=== PATIENT | female | born 1960 | race Caucasian/White ===

== ENCOUNTER 2019-04-06 11:39 | Observation (INO) | payer BC ==
[2019-04-06 13:13] VITALS: BMI 29.8
[2019-04-06 13:18] LABS: #Basophils 0.1 thou/uL (0.0-0.2); #Eosinphils 0.1 thou/uL (0.0-0.7); #Lymphocytes 1.9 thou/uL (1.20-3.40); #Monocytes 0.8 thou/uL (0.11-0.59); #Neutrophils 4.5 thou/uL (1.40-6.50); %Basophils 0.9 % (0.0-1.0); %Eosinophils 1.5 % (0.0-10.0); %Lymphocytes 25.3 % (21.0-51.0); %Monocytes 10.2 % (0.0-10.0); %Neutrophils 62.1 % (42.0-75.0); Hemoglobin 13.5 g/dL (12.0-16.0); Mean Corpuscular HGB CONC 33.7 g/dL (32.0-36.0); Mean Corpuscular Hemoglobin 30.5 pg (27.0-31.0); Mean Corpuscular Volume 90.4 fL (78.0-98.0); Mean Platelet Volume 6.8 fL (7.4-10.4); Platelet Count 254 thou/uL (130-400); RBC Distribution Width 11.5 % (11.5-14.5); Red Blood Cell (RBC) Count 4.42 mill/uL (4.20-5.40); White Blood Cell (WBC) Count 7.3 thou/uL (4.8-10.8)
[2019-04-06 13:43] LABS: Troponin I Less than 0.010 ng/mL (< 0.028)
[2019-04-06 13:47] LABS: ALT (SGPT) 38 U/L (8-55); AST (SGOT) 26 U/L (5-34); Albumin 4.4 g/dL (3.5-5.0); Alkaline Phosphatase 99 U/L (40-110); Anion Gap 14 mmol/L (10-20); BUN (Urea Nitrogen) 17 mg/dL (9.8-20.1); Bilirubin, Total 0.5 mg/dL (0.2-1.2); Calc. Creatinine Clearance 94 mL/min (70-130); Calcium 9.7 mg/dL (7.8-10.44); Carbon Dioxide 25 mmol/L (22-29); Chloride 106 mmol/L (98-107); Estimated GFR-MDRD 59; Globulin 2.7 g/dL (2.4-3.5); Glucose 88 mg/dL (70-105); Potassium 4.2 mmol/L (3.5-5.1); Protein, Total 7.1 g/dL (6.0-8.3); Sodium 141 mmol/L (136-145)
--- NOTE | 2019-04-06 14:35 | RAD ---
EXAM: Chest PA and lateral: HISTORY: Chest pain COMPARISON: none FINDINGS: Lung rosado are clear. Vascular markings are normal. Heart and mediastinum appear unremarkable. Osseous structures are unremarkable. IMPRESSION: Unremarkable chest
[2019-04-06] MEDS ORDERED: Acetaminophen 325 MG TAB PO PRN (15:16)
[2019-04-06] MEDS ORDERED: Senokot S 8.6-50 MG TAB PO PRN (15:16)
[2019-04-06 16:39] LABS: Troponin I Less than 0.010 ng/mL (< 0.028)
--- NOTE | 2019-04-06 16:39 | HP ---
PRIMARY CARE PHYSICIAN: Dr. Martell. CHIEF COMPLAINT: Chest pain. HISTORY OF PRESENT ILLNESS: Ms. Awad is a 58-year-old female with a direct admit from Dr. Martell' office, after she went to see him this morning after waking up in the tube drawer hours with substernal chest pain, which lasted about 10 to 15 minutes. The patient was seen in his office and referred to the hospitalist team for admission and further workup. The patient reports that she has a history of GERD, takes Prilosec pretty much every day and does have a past medical history pertinent for pancreatitis, but she reports this pain is different. So far, EKG, chest x-ray, and first troponin unremarkable. The patient reports that she spent most of the weekend attending a seminar . She reports that when she was transporting from one place to the other, she became more tired than normal, but denied any chest pain or shortness of breath. She went to bed and this pain woke her up in the middle of the night. She denied any diaphoresis, mild shortness of breath, and symptoms resolved within the next 10 to 15 minutes she reports. REVIEW OF SYSTEMS: Reports substernal chest pain lasting 10 to 15 minutes and resolved. Denied any diaphoresis or radiation. Reports some shortness of breath, that was resolved with the chest pain. The patient reports a little bit more fatigue yesterday than normal, altering her normal activities. Denies any previous episodes of similar chest pain in the past. Denies having a stress test, echocardiogram, or cardiac cath in the past. PAST MEDICAL HISTORY: Pertinent for GERD and hyperlipidemia. She reports that she was taking statins with having some side effects from it and has stopped taking it. Takes some fish oil. Pancreatitis, she was hospitalized for about 8 days. PAST SURGICAL HISTORY: Surgery for broken leg and ankle. FAMILY HISTORY: Pertinent for father having coronary artery disease and congestive heart failure. SOCIAL HISTORY: Lives at home with her . Denies any alcohol, drug use, or smoking history. ALLERGIES: PENICILLINS. HOME MEDICATIONS: 1. Aspirin 81 mg p.o. daily. 2. Calcium 1200 mg p.o. daily. 3. Cinnamon 1000 mg p.o. daily. 4. Fish oil 1000 mg p.o. daily. 5. Prilosec 20 mg p.o. daily. 6. Coenzyme Q 300 mg p.o. daily. PHYSICAL EXAMINATION: VITAL SIGNS: Temperature is 97.6, pulse is 81, respirations are 20, pO2 sats are 97% on room air, and blood pressure 144/70. CONSTITUTIONAL: The patient appears in no distress. She is pain free. She is alert and oriented to person, place, and time. HEENT: Head is atraumatic and normocephalic. ENT; mouth exam is normal. Mucous membranes are moist. NECK: Normal range of motion. Trachea is midline. RESPIRATORY/CHEST: Breath sounds are clear. Chest expansion is equal. CARDIAC: S1 and S2. Heart sounds are normal. ABDOMEN: Nontender. Bowel sounds are heard. BACK: Normal range of motion. No tenderness. EXTREMITIES: Upper extremities, normal inspection and normal range of motion. Radial pulses are normal. Lower extremities; normal inspection and normal range of motion. Motor strength is normal. Pedal pulses are normal. There is no edema noted. NEUROLOGIC: The patient is alert and oriented to person, place, and time. There are no focal sensory or motor deficits noted. PLAN AND ASSESSMENT: 1. Chest pain. We will trend troponins. Stress test most likely in a.m. 2. History of gastric reflux. We will restart Prilosec. 3. Deep venous thrombosis and gastrointestinal prophylaxis will be started. 4. Hospital course dependent on clinical findings. Job ID: [id number]
[2019-04-06 18:43] LABS: Troponin I Less than 0.010 ng/mL (< 0.028)
[2019-04-06] MEDS: Famotidine 20 MG TAB PO SCH (20:18)
[2019-04-07 05:24] LABS: #Basophils 0.1 thou/uL (0.0-0.2); #Eosinphils 0.1 thou/uL (0.0-0.7); #Lymphocytes 2.3 thou/uL (1.20-3.40); #Monocytes 0.8 thou/uL (0.11-0.59); #Neutrophils 3.7 thou/uL (1.40-6.50); %Basophils 1.2 % (0.0-1.0); %Eosinophils 1.8 % (0.0-10.0); %Lymphocytes 32.6 % (21.0-51.0); %Monocytes 10.9 % (0.0-10.0); %Neutrophils 53.5 % (42.0-75.0); Hemoglobin 13.5 g/dL (12.0-16.0); Mean Corpuscular HGB CONC 33.8 g/dL (32.0-36.0); Mean Corpuscular Hemoglobin 30.3 pg (27.0-31.0); Mean Corpuscular Volume 89.6 fL (78.0-98.0); Platelet Count 250 thou/uL (130-400); RBC Distribution Width 11.5 % (11.5-14.5); Red Blood Cell (RBC) Count 4.46 mill/uL (4.20-5.40); White Blood Cell (WBC) Count 6.9 thou/uL (4.8-10.8)
[2019-04-07 05:51] LABS: Anion Gap 13 mmol/L (10-20); BUN (Urea Nitrogen) 15 mg/dL (9.8-20.1); Calc. Creatinine Clearance 95 mL/min (70-130); Calcium 9.6 mg/dL (7.8-10.44); Carbon Dioxide 24 mmol/L (22-29); Cardiac Risk 4.3 (Less than 4.5); Chloride 107 mmol/L (98-107); Cholesterol 249 mg/dl (< 200 Desired); Estimated GFR-MDRD 60; Glucose 92 mg/dL (70-105); HDL Cholesterol 58 mg/dL (>60 Neg Risk); LDL Cholesterol, Calculated 171 mg/dL; Potassium 4.3 mmol/L (3.5-5.1); Sodium 140 mmol/L (136-145); Triglycerides 99 mg/dL (Less than 150)
[2019-04-07 05:55] VITALS: TEMP 97.7
[2019-04-07] MEDS ORDERED: Enoxaparin Sodium 40 MG/0.4 ML SYRINGE SC SCH (09:00)
[2019-04-07] MEDS: Famotidine 20 MG TAB PO SCH (10:53)
--- NOTE | 2019-04-07 11:07 | NM ---
EXAM: Nuclear medicine cardiac perfusion examination with ejection fraction HISTORY: Chest pain TECHNIQUE: Rest images: 10.1 mCi technetium 99m sestamibi Stress images: 27.8 mCi of technetium 9M sestamibi; Adenosine COMPARISON: None FINDINGS: Tomographic images: No reversible perfusion defects. There is a small sized, mild intensity fixed per fusion defect at the apex. Gated images: Normal wall motion and ejection fraction of 64%. EDV: 84 mL LHR: 0.3 TID: 1.1 IMPRESSION: 1. No evidence of ischemia 2. Small perfusion defect at the apex which is fixed may be sequelae from remote infarction.
[2019-04-07 12:28] VITALS: BP 121/67
--- NOTE | 2019-04-07 14:09 | PDOC.HOSPP ---
- Subjective Encounter Date: 04/07/19 Encounter Time: 14:08 Subjective: Ms. Awad was seen today in follow-up of chest pain. She does not have any complaints. Chest pain has resolved. - Objective Vital Signs & Weight: Vital Signs (12 hours) Temp Pulse Resp BP Pulse Ox 04/07/19 11:54 97.7 F 85 14 121/67 98 04/07/19 04:27 97.7 F 75 17 132/68 96 Weight Weight 208 lb I&O: 04/06/19 04/07/19 04/08/19 06:59 06:59 06:59 Intake Total 1220 Output Total 1000 Balance 220 Result Diagrams: 04/07/19 04:24 04/07/19 04:24 Hospitalist ROS - Medication Medications: Active Medications Generic Name Dose Route Start Last Admin Trade Name Freq PRN Reason Stop Dose Admin Enoxaparin Sodium 40 mg 04/07/19 09:00 04/07/19 10:53 Lovenox SC 40 mg 0900 GREGORIO Administration Famotidine 20 mg 04/06/19 21:00 04/07/19 10:53 Pepcid PO 20 mg BID GREGORIO Administration - Exam Eye: PERRL, anicteric sclera Respiratory: CTAB, no wheezes, no rales, no ronchi, normal chest expansion, no tachypnea Gastrointestinal: soft, non-tender, non-distended, normal bowel sounds, no palpable masses, no hepatomegaly Extremities: no cyanosis, no edema Hosp A/P (1) Chest pain Code(s): R07.9 - CHEST PAIN, UNSPECIFIED Status: Acute (2) GERD (gastroesophageal reflux disease) Code(s): K21.9 - GASTRO-ESOPHAGEAL REFLUX DISEASE WITHOUT ESOPHAGITIS Status: Chronic (3) Dyslipidemia Code(s): E78.5 - HYPERLIPIDEMIA, UNSPECIFIED Status: Chronic - Plan * Chest pain- ? etiology- may be due to GERD * Would recommend outpatient Cardiology evaluation * Stable for discharge home
[2019-04-07] MEDS ORDERED: ADENOSINE 60 MG/20 ML VIAL ONE (20:27)
--- NOTE | 2019-04-08 02:30 | DIS ---
DATE OF ADMISSION: 04/06/2019 DATE OF DISCHARGE: 04/07/2019 PRIMARY CARE PHYSICIAN: Giles Martell MD DISCHARGE DISPOSITION: Home. DISCHARGE DIAGNOSES: 1. Chest pain, probable noncardiac. 2. Dyslipidemia. 3. History of gastroesophageal reflux disease. DISCHARGE MEDICATIONS: Include: 1. Omeprazole 20 mg daily. 2. Fish oil 1000 mg daily. 3. Cinnamon bark 1000 mg daily. 4. Calcium carbonate 1200 mg daily. 5. Aspirin 81 mg a day. 6. CoQ10 of 300 mg daily. IMAGING: The patient had a nuclear stress test, which was negative for reversible ischemia. CODE STATUS: Full code. ALLERGIES: TO PENICILLIN. HOSPITAL COURSE: Ms. Awad is a pleasant 58-year-old female, who presented to the emergency room complaining of chest pain which awoke her from sleep. She came to the ER for evaluation. She was placed in observation and ruled out with serial troponins. A nuclear stress test was obtained. The patient's stress test was essentially negative and her chest pain had completely resolved. I suspected that this could be due to gastroesophageal reflux disease. However, given that she did not reach her target heart rate and there was evidence of a fixed defect recommending outpatient cardiology referral. Also, she has been taking a medicine for cholesterol and had stopped and recommended that she started taking this once again. Job ID: [id number]
--- NOTE | 2019-04-10 09:59 | EKG ---
Test Reason : Blood Pressure : / mmHG Vent. Rate : 075 BPM Atrial Rate : 075 BPM P-R Int : 176 ms QRS Dur : 086 ms QT Int : 408 ms P-R-T Axes : 000 -02 015 degrees QTc Int : 455 ms Normal sinus rhythm Normal ECG No previous ECGs available Confirmed by AVERY PHELPS MD ([id number]) on 04/10/2019 9:59:12 AM Referred By: EVE Confirmed By:AVERY PHELPS MD
== END 2019-04-07 14:27 | disposition home or self-care (01) ==
LOC: 2SW 11:39
PROVIDERS: ADMIT Internal Medicine; ATTEND Internal Medicine
DX: R07.2 Precordial pain (principal); E78.5 Hyperlipidemia, unspecified; K21.9 Gastro-esophageal reflux disease without esophagitis; Z79.82 Long term (current) use of aspirin; Z79.899 Other long term (current) drug therapy; Z88.0 Allergy status to penicillin
CPT/HCPCS: 36415; 71046; 78452; 80048; 80053; 80061; 84443; 84484; 85025; 85610; 93005; 93010; 93017; 96372; A9500; G0378; J0153; J1650

== ENCOUNTER 2023-07-19 08:50 | Outpatient (CLI) | payer BC ==
[2023-07-19 10:22] LABS: #Basophils 0.1 10x3/uL (0.0-0.2); #Eosinphils 0.2 10x3/uL (0.0-0.5); #Monocytes 0.6 10x3/uL (0.0-1.1); #Neutrophils 4.1 10x3/uL (1.5-8.4); %Basophils 0.9 % (0.0-2.0); %Eosinophils 2.6 % (0.0-6.0); %Lymphocytes 24.3 % (18.0-47.0); %Monocytes 9.6 % (0.0-10.0); %Neutrophils 62.1 % (40.0-75.0); Hematocrit 40.1 % (34.9-44.5); Hemoglobin 13.3 g/dL (12.0-15.5); Mean Corpuscular HGB CONC 33.2 g/dL (32.0-36.0); Mean Corpuscular Hemoglobin 29.7 pg (27.0-33.0); Mean Corpuscular Volume 89.5 fl (81.6-98.3); Mean Platelet Volume 9.5 fl (7.4-10.4); Platelet Count 245 10x3/uL (150-450); RBC Distribution Width 12.5 % (11.5-14.5); Red Blood Cell (RBC) Count 4.48 10x6/uL (3.90-5.03); White Blood Cell (WBC) Count 6.5 10x3/uL (3.5-10.5)
[2023-07-19 10:26] LABS: ALT (SGPT) 26 U/L (8-55); AST (SGOT) 30 U/L (5-34); Albumin 4.3 g/dL (3.4-4.8); Alkaline Phosphatase 80 U/L (40-110); Anion Gap 12 mmol/L (10-20); BUN (Urea Nitrogen) 29 mg/dL (9.8-20.1); Bilirubin, Total 0.5 mg/dL (0.2-1.2); Calc. Creatinine Clearance 0 mL/min (70-130); Calcium 9.1 mg/dL (7.8-10.44); Carbon Dioxide 24 mmol/L (23-31); Chloride 109 mmol/L (98-107); Estimated GFR 78; Globulin 2.7 g/dL (2.4-3.5); Glucose 89 mg/dL (80-115); Potassium 4.5 mmol/L (3.5-5.1); Sodium 140 mmol/L (136-145)
== END 2023-07-19 08:51 | disposition home or self-care (01) ==
LOC: LABBT 08:50
PROVIDERS: ATTEND Internal Medicine Cardiovascular Disease
DX: Z01.812 Encounter for preprocedural laboratory examination (principal); I25.10 Atherosclerotic heart disease of native coronary artery without angina pectoris
CPT/HCPCS: 80053; 85025

== ENCOUNTER 2023-07-23 06:08 | Day surgery (SDC) | payer BC ==
[2023-07-19 09:45] VITALS: BMI 25.7
[2023-07-23] MEDS ORDERED: fentaNYL 50 mcg/mL 1 mL Vial ONE (06:19)
[2023-07-23] MEDS ORDERED: Midazolam HCl 2 mg/2 ml Vial ONE (06:19)
[2023-07-23] MEDS ORDERED: Nitroglycerin 50 MG/250 ML BOT 0 ML ONE (06:20)
[2023-07-23] MEDS ORDERED: Heparin 10,000 UNITS/ 10 ML VIAL ONE (06:20)
[2023-07-23] MEDS ORDERED: Atropine Sulfate 1 mg/10 ml Syringe ONE (06:51)
[2023-07-23] MEDS ORDERED: PHENYLEPHRINE-NS 100 MCG/ML 10 ML SYRINGE ONE (06:51)
[2023-07-23] MEDS ORDERED: Iopamidol 370 76% 100 ML VIAL ONE (10:56)
== END 2023-07-23 13:43 | disposition home or self-care (01) ==
LOC: SDC 06:08
PROVIDERS: ATTEND Internal Medicine Cardiovascular Disease
PROC: 4A023N7 Measurement of Cardiac Sampling and Pressure, Left Heart, Percutaneous Approach (ICD-10-PCS; principal; 2023-07-23)
DX: I25.119 Atherosclerotic heart disease of native coronary artery with unspecified angina pectoris (principal); I10 Essential (primary) hypertension; E78.2 Mixed hyperlipidemia; I83.92 Asymptomatic varicose veins of left lower extremity; Z87.891 Personal history of nicotine dependence; Z90.49 Acquired absence of other specified parts of digestive tract; Z88.0 Allergy status to penicillin; Z90.710 Acquired absence of both cervix and uterus; Z79.82 Long term (current) use of aspirin; Z79.899 Other long term (current) drug therapy; Z79.02 Long term (current) use of antithrombotics/antiplatelets; Z91.041 Radiographic dye allergy status; Z86.718 Personal history of other venous thrombosis and embolism
CPT/HCPCS: 93458; 99152; 99153; C1769; C1887; J0461; J1644; J2250; J3010; Q9967

== ENCOUNTER 2023-08-08 07:12 | Outpatient (CLI) | payer BC ==
[2023-08-08 08:37] LABS: Hematocrit 38.6 % (34.9-44.5); Hemoglobin 13.3 g/dL (12.0-15.5); Mean Corpuscular HGB CONC 34.5 g/dL (32.0-36.0); Mean Corpuscular Hemoglobin 30.6 pg (27.0-33.0); Mean Corpuscular Volume 88.9 fl (81.6-98.3); Mean Platelet Volume 9.5 fl (7.4-10.4); Platelet Count 245 10x3/uL (150-450); RBC Distribution Width 12.8 % (11.5-14.5); Red Blood Cell (RBC) Count 4.34 10x6/uL (3.90-5.03); White Blood Cell (WBC) Count 6.2 10x3/uL (3.5-10.5)
[2023-08-08 08:43] LABS: Anion Gap 14 mmol/L (10-20); BUN (Urea Nitrogen) 18 mg/dL (9.8-20.1); Calc. Creatinine Clearance 0 mL/min (70-130); Calcium 9.1 mg/dL (7.8-10.44); Carbon Dioxide 25 mmol/L (23-31); Chloride 108 mmol/L (98-107); Estimated GFR 85; Glucose 95 mg/dL (80-115); Potassium 4.4 mmol/L (3.5-5.1); Sodium 143 mmol/L (136-145)
== END 2023-08-08 07:13 | disposition home or self-care (01) ==
LOC: LABBT 07:12
PROVIDERS: ATTEND Thoracic Surgery (Cardiothoracic Vascular Surgery)
DX: Z01.812 Encounter for preprocedural laboratory examination (principal); I25.10 Atherosclerotic heart disease of native coronary artery without angina pectoris
CPT/HCPCS: 80048; 85027

== ENCOUNTER 2023-08-08 07:30 | Inpatient (IN) | payer BC ==
[2023-08-09] MEDS ORDERED: Heparin 10,000 UNITS/1 ML VIAL 30,000 UNITS in Sodium Chloride 0.9% 1,000 ML FS SCH (06:45)
[2023-08-09] MEDS ORDERED: Bupivacaine PF 0.5% 30 ML VIAL ONE (06:49)
[2023-08-09] MEDS ORDERED: EPINEPHrine 1 MG/ML VIAL ONE (06:49)
[2023-08-09] MEDS ORDERED: Dexamethasone 4 mg/ml Vial ONE (06:49)
[2023-08-09] MEDS ORDERED: Albumin 5% 500 ML ONE (06:49)
[2023-08-09] MEDS ORDERED: PHENYLEPHRINE-NS 100 MCG/ML 10 ML SYRINGE ONE ×2 (06:49→07:15)
[2023-08-09] MEDS ORDERED: Lidocaine 1% MPF 2 ML VIAL ONE (06:54)
[2023-08-09] MEDS ORDERED: Clindamycin/D5W 900 mg/50 ml Premix Bag ONE (06:55)
[2023-08-09] MEDS ORDERED: Rocuronium Bromide 10 MG/ML (10ML VIAL) ONE ×2 (07:15→09:40)
[2023-08-09] MEDS ORDERED: Fentanyl 250 MCG/5 ML VIAL ONE (07:15)
[2023-08-09] MEDS ORDERED: PROPOFOL 20 ML ONE (07:15)
[2023-08-09] MEDS ORDERED: Midazolam HCl 2 mg/2 ml Vial ONE ×2 (07:59→08:47)
[2023-08-09] MEDS ORDERED: fentaNYL 50 mcg/mL 1 mL Vial ONE (10:06)
[2023-08-09] MEDS ORDERED: Bisacodyl 10 MG SUPP PR PRN (10:16)
[2023-08-09] MEDS ORDERED: Acetaminophen 325 MG TAB PO PRN (10:16)
[2023-08-09] MEDS ORDERED: Mag-Al 1200 mg/1200 mg/30 ML UDCUP PO PRN (10:16)
[2023-08-09] MEDS ORDERED: fentaNYL 50 mcg/mL 1 mL Vial SLOW IVP PRN ×2 (10:16)
[2023-08-09] MEDS ORDERED: Ipratropium/Albuterol 3 ML NEB NEB PRN (10:16)
[2023-08-09] MEDS ORDERED: Bisacodyl 5 MG TAB PO PRN (10:16)
[2023-08-09] MEDS ORDERED: Albumin 5% 12.5 GM (250 mL) BOT IVPB PRN ×2 (10:16)
[2023-08-09] MEDS ORDERED: Promethazine HCl 25 MG/ML VIAL IM PRN (10:16)
[2023-08-09] MEDS ORDERED: hydrALAZINE 20 MG/ML VIAL SLOW IVP PRN (10:16)
[2023-08-09] MEDS ORDERED: traMADol HCl 50 MG TAB PO PRN (10:16)
[2023-08-09] MEDS: D5 1/2 NS w/20 mEq KCL 1,000 ML IV SCH (10:55)
[2023-08-09] MEDS: Nitroglycerin 50 MG/250 ML BOT 250 ML IVPB PRN (10:55)
[2023-08-09] MEDS: Magnesium 2 GM/50 ML(in water) 2 GM in Premix 1 BAG IVPB SCH (10:55)
[2023-08-09] MEDS: Morphine 2 MG/ML VIAL SLOW IVP PRN (10:55)
[2023-08-09 10:56] LABS: #Basophils 0.1 thou/uL (0.0-0.2); #Eosinphils 0.2 thou/uL (0.0-0.7); #Monocytes 1.3 thou/uL (0.11-0.59); #Neutrophils 17.5 thou/uL (1.40-6.50); %Basophils 0.4 % (0.0-1.0); %Eosinophils 1.1 % (0.0-10.0); %Lymphocytes 9.9 % (21.0-51.0); %Monocytes 5.8 % (0.0-10.0); %Neutrophils 81.2 % (42.0-75.0); Hematocrit 29.4 % (36.0-47.0); Hemoglobin 9.7 g/dL (12.0-16.0); Mean Corpuscular Hemoglobin 30.3 pg (27.0-31.0); Mean Corpuscular Volume 91.9 fl (78.0-98.0); Mean Platelet Volume 9.2 fL (7.4-10.4); Platelet Count 165 10x3/uL (130-400); RBC Distribution Width 12.9 % (11.5-14.5); White Blood Cell (WBC) Count 21.6 10x3/uL (4.8-10.8)
[2023-08-09] MEDS: Ketorolac Tromethamine 30 MG (1 mL) VIAL IVP SCH (10:57)
[2023-08-09] MEDS: Insulin Regular 300 UNITS/3 ML VIAL SC PRN (11:01)
[2023-08-09 11:11] LABS: INR-International Normal Ratio 1.3; PTT 30.3 sec (22.9-36.1); Prothrombin Time 16.3 sec (12.0-14.7)
[2023-08-09 11:16] LABS: Anion Gap 10 mmol/L (10-20); BUN (Urea Nitrogen) 15 mg/dL (9.8-20.1); Calc. Creatinine Clearance 103 mL/min (70-130); Calcium 7.8 mg/dL (7.8-10.44); Carbon Dioxide 24 mmol/L (23-31); Chloride 113 mmol/L (98-107); Estimated GFR 94; Glucose 163 mg/dL (80-115); Potassium 4.1 mmol/L (3.5-5.1); Sodium 143 mmol/L (136-145)
[2023-08-09 11:24] LABS: Actual Bicarbonate (HCO3a) 21.2 mEq/L (22-28); Base Excess (BEa) -4.4 mEq/L (-2.0 to +3.0); CO2 Tension 40.8 mmHg (35.0-45.0); Calcium, Ionized (arterial) 1.11 mmol/L (1.12-1.30); Carboxyhemoglobin (COHb) 0.7 gm% (0.0-3.0); Hematocrit-ABG 31 % (36.0-47.0); Hemoglobin (Hb) 10.7 g/dL (12.0-16.0); O2 Tension (PaO2), arterial 131.9 mmHg (> 80.0); Potassium - ABG Lab 4.04 mmol/L (3.70-5.30); pH, Arterial 7.333 (7.35-7.45)
[2023-08-09 11:25] LABS: Puncture Site ALINE
[2023-08-09] MEDS: Clindamycin/D5W 900 MG in Premix 1 BAG IVPB SCH (13:30)
[2023-08-09] MEDS: Hetastarch 6% 500 ML 500 ML IVPB PRN (13:30)
[2023-08-09] MEDS: NOREPINEPHRINE 8 MG/250 ML-D5W 250 ML IVPB PRN (14:17)
[2023-08-09] MEDS: FLU VACC QS2023-24(6MOS UP)/PF 60 MCG/0.5 ML SYRINGE IM ONE (14:17)
[2023-08-09 15:05] LABS: Actual Bicarbonate (HCO3a) 19.3 mEq/L (22-28); Base Excess (BEa) -4.8 mEq/L (-2.0 to +3.0); CO2 Tension 32.6 mmHg (35.0-45.0); Calcium, Ionized (arterial) 1.09 mmol/L (1.12-1.30); Carboxyhemoglobin (COHb) 0.5 gm% (0.0-3.0); Hematocrit-ABG 34 % (36.0-47.0); Hemoglobin (Hb) 11.5 g/dL (12.0-16.0); O2 Tension (PaO2), arterial 140.5 mmHg (> 80.0); Potassium - ABG Lab 4.04 mmol/L (3.70-5.30)
[2023-08-09] MEDS: Ondansetron PF 4 MG/2 ML Vial IVP PRN (15:29)
[2023-08-09 16:35] LABS: Hematocrit 33.5 % (36.0-47.0); Hemoglobin 11.2 g/dL (12.0-16.0)
[2023-08-09 16:49] LABS: Potassium 4.3 mmol/L (3.5-5.1)
[2023-08-09] MEDS: Famotidine/PF 20 mg/2ml Vial SLOW IVP SCH (20:06)
[2023-08-10 04:16] LABS: #Monocytes 1.6 thou/uL (0.11-0.59); #Neutrophils 10.3 thou/uL (1.40-6.50); %Basophils 0.2 % (0.0-1.0); %Lymphocytes 8.3 % (21.0-51.0); %Monocytes 12.2 % (0.0-10.0); %Neutrophils 78.8 % (42.0-75.0); Hematocrit 32.2 % (36.0-47.0); Hemoglobin 10.6 g/dL (12.0-16.0); Mean Corpuscular HGB CONC 32.9 g/dL (32.0-36.0); Mean Corpuscular Hemoglobin 30.4 pg (27.0-31.0); Mean Corpuscular Volume 92.3 fl (78.0-98.0); Mean Platelet Volume 9.7 fL (7.4-10.4); Platelet Count 176 10x3/uL (130-400); Red Blood Cell (RBC) Count 3.49 mill/uL (4.20-5.40); White Blood Cell (WBC) Count 13.1 10x3/uL (4.8-10.8)
[2023-08-10 05:11] LABS: Anion Gap 10 mmol/L (10-20); BUN (Urea Nitrogen) 14 mg/dL (9.8-20.1); Calc. Creatinine Clearance 98 mL/min (70-130); Calcium 8.1 mg/dL (7.8-10.44); Carbon Dioxide 23 mmol/L (23-31); Chloride 109 mmol/L (98-107); Estimated GFR 87; Glucose 139 mg/dL (80-115); Potassium 3.9 mmol/L (3.5-5.1); Sodium 138 mmol/L (136-145)
[2023-08-10] MEDS: Potassium Chloride 20 MEQ (100 mL) BAG IVPB PRN (07:46)
[2023-08-10] MEDS: Loratadine 10 MG TAB PO SCH (08:00)
[2023-08-10] MEDS: Fish Oil 1,000 MG CAP PO SCH (08:00)
[2023-08-10] MEDS: Aspirin 325 MG TAB PO SCH (08:01)
[2023-08-10] MEDS: CO Q-10 CAPSULE 100 MG PO SCH (08:01)
[2023-08-10] MEDS ORDERED: Nitroglycerin 0.4 MG TAB (25 Tab Bottle) SL PRN (09:41)
[2023-08-10] MEDS ORDERED: Mineral Oil ENEMA PR PRN (09:41)
[2023-08-10] MEDS: Magnesium 2 GM/50 ML(in water) 2 GM in Premix 1 BAG IVPB SCH (09:55)
[2023-08-10] MEDS: Fluticasone Propionate Nasal Spray 16 gm Bottle NASAL SCH (10:01)
[2023-08-10] MEDS: traMADol HCl 50 MG TAB PO PRN (18:13)
[2023-08-11 05:35] LABS: #Monocytes 1.5 thou/uL (0.11-0.59); #Neutrophils 8.1 thou/uL (1.40-6.50); %Basophils 0.3 % (0.0-1.0); %Eosinophils 0.1 % (0.0-10.0); %Lymphocytes 12.5 % (21.0-51.0); %Monocytes 13.5 % (0.0-10.0); %Neutrophils 73.1 % (42.0-75.0); Hematocrit 28.8 % (36.0-47.0); Hemoglobin 9.9 g/dL (12.0-16.0); Mean Corpuscular HGB CONC 34.4 g/dL (32.0-36.0); Mean Corpuscular Hemoglobin 31.2 pg (27.0-31.0); Mean Corpuscular Volume 90.9 fl (78.0-98.0); Mean Platelet Volume 9.6 fL (7.4-10.4); Platelet Count 153 10x3/uL (130-400); RBC Distribution Width 13.2 % (11.5-14.5); Red Blood Cell (RBC) Count 3.17 mill/uL (4.20-5.40)
[2023-08-11 06:29] LABS: Anion Gap 6 mmol/L (10-20); BUN (Urea Nitrogen) 14 mg/dL (9.8-20.1); Calc. Creatinine Clearance 99 mL/min (70-130); Calcium 8.2 mg/dL (7.8-10.44); Carbon Dioxide 26 mmol/L (23-31); Chloride 107 mmol/L (98-107); Estimated GFR 88; Glucose 111 mg/dL (80-115); Potassium 4.2 mmol/L (3.5-5.1); Sodium 135 mmol/L (136-145)
[2023-08-11 11:27] VITALS: BMI 25.9
[2023-08-11 15:23] VITALS: BP 151/62
[2023-08-11] MEDS: Metoprolol Tartrate 25 MG TAB PO SCH (20:09)
[2023-08-12] MEDS: Guaifenesin DM 100-10/5 ML UDCUP PO PRN (05:01)
[2023-08-12 05:15] LABS: #Basophils 0.1 thou/uL (0.0-0.2); #Eosinphils 0.1 thou/uL (0.0-0.7); #Monocytes 1.4 thou/uL (0.11-0.59); #Neutrophils 7.6 thou/uL (1.40-6.50); %Basophils 0.5 % (0.0-1.0); %Eosinophils 1.1 % (0.0-10.0); %Lymphocytes 16.3 % (21.0-51.0); %Monocytes 12.4 % (0.0-10.0); %Neutrophils 69.2 % (42.0-75.0); Hematocrit 31.5 % (36.0-47.0); Hemoglobin 10.4 g/dL (12.0-16.0); Mean Corpuscular Hemoglobin 30.2 pg (27.0-31.0); Mean Corpuscular Volume 91.6 fl (78.0-98.0); Mean Platelet Volume 9.6 fL (7.4-10.4); Platelet Count 187 10x3/uL (130-400); RBC Distribution Width 12.9 % (11.5-14.5); Red Blood Cell (RBC) Count 3.44 mill/uL (4.20-5.40); White Blood Cell (WBC) Count 10.9 10x3/uL (4.8-10.8)
[2023-08-12 08:11] VITALS: TEMP 98
[2023-08-13 15:04] LABS: Actual Bicarbonate (HCO3a) 20.9 mEq/L (22-28); Analyzer IN Cardio OR; Base Excess (BEa) -3.5 mEq/L (-2.0 to +3.0); CO2 Tension 35.7 mmHg (35.0-45.0); Calcium, Ionized (arterial) 1.14 mmol/L (1.12-1.30); Carboxyhemoglobin (COHb) 0.8 gm% (0.0-3.0); Hematocrit-ABG 36 % (36.0-47.0); Hemoglobin (Hb) 12.4 g/dL (12.0-16.0); O2 Tension (PaO2), arterial 379.5 mmHg (> 80.0); Potassium - ABG Lab 3.61 mmol/L (3.70-5.30); pH, Arterial 7.386 (7.35-7.45)
[2023-08-13 15:05] LABS: Actual Bicarbonate (HCO3a) 22.8 mEq/L (22-28); Analyzer IN Cardio OR; Base Excess (BEa) -3.1 mEq/L (-2.0 to +3.0); CO2 Tension 44.8 mmHg (35.0-45.0); Carboxyhemoglobin (COHb) 0.6 gm% (0.0-3.0); Hematocrit-ABG 25 % (36.0-47.0); Hemoglobin (Hb) 8.5 g/dL (12.0-16.0); O2 Tension (PaO2), arterial 464.9 mmHg (> 80.0); Potassium - ABG Lab 4.36 mmol/L (3.70-5.30); pH, Arterial 7.325 (7.35-7.45)
[2023-08-13 15:05] LABS: Actual Bicarbonate (HCO3a) 22.3 mEq/L (22-28); Analyzer IN Cardio OR; Base Excess (BEa) -3.7 mEq/L (-2.0 to +3.0); CO2 Tension 44.1 mmHg (35.0-45.0); Calcium, Ionized (arterial) 1.11 mmol/L (1.12-1.30); Carboxyhemoglobin (COHb) 0.4 gm% (0.0-3.0); Hematocrit-ABG 33 % (36.0-47.0); Hemoglobin (Hb) 11.2 g/dL (12.0-16.0); O2 Tension (PaO2), arterial 196.3 mmHg (> 80.0); Potassium - ABG Lab 3.73 mmol/L (3.70-5.30); pH, Arterial 7.322 (7.35-7.45)
[2023-08-13 15:05] LABS: Actual Bicarbonate (HCO3v) 22.9 mEq/L (22-28); Analyzer IN Cardio OR; Base Excess -3.5 mEq/L (-2.0 to +3.0); Calcium, Ionized (venous) 1.02 mmol/L (1.16-1.32); Chloride (VBG) 109 mmol/L (98-106); Hematocrit-VBG 25 % (36.0-47.0); Hemoglobin (Hb) 8.5 g/dL (11.7-16.0); Potassium (VBG) 4.52 mmol/L (3.70-5.30); Sodium 138 mmol/L (133-146); pH (venous) 7.297 (7.32-7.43)
[2023-08-13 15:06] LABS: Puncture Site Arterial Line
[2023-08-13 15:06] LABS: Actual Bicarbonate (HCO3a) 20.9 mEq/L (22-28); Analyzer IN Cardio OR; Base Excess (BEa) -4.4 mEq/L (-2.0 to +3.0); CO2 Tension 39.2 mmHg (35.0-45.0); Calcium, Ionized (arterial) 1.08 mmol/L (1.12-1.30); Carboxyhemoglobin (COHb) 0.6 gm% (0.0-3.0); Hematocrit-ABG 26 % (36.0-47.0); Hemoglobin (Hb) 8.9 g/dL (12.0-16.0); O2 Tension (PaO2), arterial 184.3 mmHg (> 80.0); Potassium - ABG Lab 4.05 mmol/L (3.70-5.30); pH, Arterial 7.345 (7.35-7.45)
[2023-08-13 15:06] LABS: Puncture Site Arterial Line
[2023-08-13 15:07] LABS: Puncture Site Arterial Line
[2023-08-13 15:07] LABS: Puncture Site Arterial Line
== END 2023-08-12 10:45 | disposition home or self-care (01) | DRG 236 ==
LOC: SURG A 08-09 05:50 → CCU 08-09 10:11
PROVIDERS: ADMIT Thoracic Surgery (Cardiothoracic Vascular Surgery); ATTEND Thoracic Surgery (Cardiothoracic Vascular Surgery)
PROC: 02100Z9 Bypass Coronary Artery, One Artery from Left Internal Mammary, Open Approach (ICD-10-PCS; principal; 2023-08-09)
PROC: 021009W Bypass Coronary Artery, One Artery from Aorta with Autologous Venous Tissue, Open Approach (ICD-10-PCS; 2023-08-09)
PROC: 06BQ4ZZ Excision of Left Saphenous Vein, Percutaneous Endoscopic Approach (ICD-10-PCS; 2023-08-09)
PROC: 5A1221Z Performance of Cardiac Output, Continuous (ICD-10-PCS; 2023-08-09)
PROC: 02L70CK Occlusion of Left Atrial Appendage with Extraluminal Device, Open Approach (ICD-10-PCS; 2023-08-09)
PROC: 3E033XZ Introduction of Vasopressor into Peripheral Vein, Percutaneous Approach (ICD-10-PCS; 2023-08-09)
PROC: 4A133R1 Monitoring of Arterial Saturation, Peripheral, Percutaneous Approach (ICD-10-PCS; 2023-08-09)
PROC: 30233J1 Transfusion of Nonautologous Serum Albumin into Peripheral Vein, Percutaneous Approach (ICD-10-PCS; 2023-08-09)
DX: I25.10 Atherosclerotic heart disease of native coronary artery without angina pectoris (principal); I10 Essential (primary) hypertension; E78.5 Hyperlipidemia, unspecified
CPT/HCPCS: 36415; 36416; 71045; 80048; 82805; 85025; 85610; 85730; 86850; 86900; 86901; 93005; 93010; 93798; 94002; 94150; 97139; A4311; A4648; C1751; J0171; J0665; J1100; J1815; J1885; J2250; J2272; J2405; J2704; J3010; J3475; J3480; J3490; P9045; S0028